=== PATIENT | male | born 1970 | race Caucasian/White ===

== ENCOUNTER 2016-09-04 20:02 | Emergency (ER) | payer OTHER ==
[~2016-09-04] VITALS: Ht 185.4 cm; Wt 97.8 kg
[2016-09-04 20:09] VITALS: TEMP 36.7; Ht 185.4 cm; Wt 97.8 kg
[2016-09-04 20:43] LABS: POINT OF CARE TROPONIN I < 0.030 ng/ml (0-0.045)
[2016-09-04 20:57] LABS: BASO % 0.2 %; BASO ABS # 0.02 K/uL (0-0.2); COMPLETE YES; EOS % 0.7 %; HEMATOCRIT 41.4 % (42-52); IG% 0.3 %; LYMPH ABS # 3.09 K/uL (1.2-3.4); MEAN CELL VOLUME 86.6 fL (80-100); MEAN CORPUSCULAR HEMOGLOBIN 30.8 pg (25-34); MEAN CORPUSCULAR HGB CONC 35.5 g/dl (32-36); MEAN PLATELET VOLUME 8.8 fL (7.4-10.4); MONO % 10.1 %; NEUT % 55.7 %; PLATELET COUNT 217 K/uL (130-400); RED BLOOD COUNT 4.78 M/uL (4.7-6.1); WHITE BLOOD COUNT 9.36 K/uL (4.8-10.8)
[2016-09-04 21:09] LABS: BUN/CREATININE RATIO 25.4 (10-20); CALCIUM 8.8 mg/dl (8.5-10.1); CREATININE 1.1 mg/dl (0.60-1.40)
--- NOTE | 2016-09-04 21:13 | DIAGNOSTIC IMAGING REPORT ---
CHEST ONE VIEW PORTABLE CLINICAL HISTORY: Chest pain. COMPARISON STUDY: Chest radiograph April 05, 2009. FINDINGS: The lung volumes are normal. No pneumothorax or pleural effusion is present. There is no consolidation. Pulmonary vascularity is normal. Cardiomediastinal silhouette is normal. IMPRESSION: No acute cardiopulmonary findings. Electronically signed by: Kenny Wheeler M.D. 09/04/2016 9:11 PM Dictated Date/Time: 09/04/2016 9:11 PM
[2016-09-04 21:14] LABS: CKMB/CK RATIO 0.4 (0-3.0)
--- NOTE | 2016-09-04 23:00 | EMERGENCY ROOM VISIT NOTE ---
History First contact with patient: 20:12 Chief Complaint: CHEST PAIN Stated Complaint: CHEST PAIN Nursing Triage Summary: pt reports while "doing cardio got approx 10 min into 25 min course and had a very sharp stabbing pain in mid chest" denies sob , N V, or diaphoresis History of Present Illness The patient is a 46 year old male who presents to the Emergency Room with complaints of intermittent chest pain. The patient states that he developed a sharp central chest pain while working out earlier today. The pain was intermittent and lasted for about 20 minutes. The patient went home and took a nap. He states that when he woke up, the pain started again and was again intermittent. He denies any radiation of the pain. Patient rates the discomfort a 4/10. He did take aspirin for his discomfort. The patient denies any personal history of cardiac disease. He does state he was previously on cholesterol medication, but was taken off of it a few years ago because his cholesterol had improved. He has had chest pain intermittently for the past few years and had a stress test done 3-4 years ago which was negative. He has a family history of cardiac disease in his brother, who had an OK in his 40s and his father, who had quadruple bypass surgery in his 60s. The patient denies any history of hypertension or diabetes. He does not smoke. He denies shortness of breath, fevers/chills, nausea/vomiting or diaphoresis. Review of Systems A complete 10 point review of systems was reviewed with the patient with pertinent positives and negatives as per history of present illness. All else were negative. Social History Smoking Status: Light Tobacco Smoker Current/Historical Medications No Active Prescriptions or Reported Meds Allergies Coded Allergies: No Known Allergies (Unverified , 09/04/16) Physical Exam Vital Signs Date Time Temp Pulse Resp B/P (MAP) Pulse Ox O2 Delivery O2 Flow Rate FiO2 09/04/16 23:21 76 18 135/87 99 09/04/16 22:11 66 18 134/88 96 Room Air 09/04/16 21:27 67 18 136/87 98 Room Air 09/04/16 20:24 77 09/04/16 20:09 36.7 85 18 149/95 96 Room Air Physical Exam VITALS: Vitals are noted on the nurse's note and reviewed by myself. Vital signs stable. GENERAL: This is a 46-year-old male, in no acute distress, nondiaphoretic, well- developed well-nourished. SKIN: Capillary reflex less than 2 seconds. HEENT: Normocephalic. PERRLA. EOMI. Mucous membranes moist. Neck is supple without nuchal rigidity. HEART: Regular rate and rhythm without murmurs gallops or rubs. LUNGS: Clear to auscultation bilaterally without wheezes, rales or rhonchi. ABDOMEN: Positive bowel sounds x 4. Soft, nontender to palpation. MUSCULOSKELETAL: No gross musculoskeletal defects. No pedal edema. No calf tenderness. NEURO: Patient was alert and oriented to person place and time. Medical Decision & Procedures ER Provider Diagnostic Interpretation: CHEST ONE VIEW PORTABLE CLINICAL HISTORY: Chest pain. COMPARISON STUDY: Chest radiograph April 05, 2009. FINDINGS: The lung volumes are normal. No pneumothorax or pleural effusion is present. There is no consolidation. Pulmonary vascularity is normal. Cardiomediastinal silhouette is normal. IMPRESSION: No acute cardiopulmonary findings. Laboratory Results 09/04/16 20:20 Red Blood Count 4.78, Mean Corpuscular Volume 86.6, Mean Corpuscular Hemoglobin 30.8, Mean Corpuscular Hemoglobin Concent 35.5, Mean Platelet Volume 8.8, Neutrophils (%) (Auto) 55.7, Lymphocytes (%) (Auto) 33.0, Monocytes (%) (Auto) 10.1, Eosinophils (%) (Auto) 0.7, Basophils (%) (Auto) 0.2, Neutrophils # (Auto ) 5.20, Lymphocytes # (Auto) 3.09, Monocytes # (Auto) 0.95, Eosinophils # (Auto ) 0.07, Basophils # (Auto) 0.02 09/04/16 20:20 Test 09/04/16 20:20 09/04/16 20:25 09/04/16 22:05 White Blood Count 9.36 K/uL (4.8-10.8) Red Blood Count 4.78 M/uL (4.7-6.1) Hemoglobin 14.7 g/dL (14.0-18.0) Hematocrit 41.4 % (42-52) Mean Corpuscular Volume 86.6 fL (80-100) Mean Corpuscular Hemoglobin 30.8 pg (25-34) Mean Corpuscular Hemoglobin Concent 35.5 g/dl (32-36) Platelet Count 217 K/uL (130-400) Mean Platelet Volume 8.8 fL (7.4-10.4) Neutrophils (%) (Auto) 55.7 % Lymphocytes (%) (Auto) 33.0 % Monocytes (%) (Auto) 10.1 % Eosinophils (%) (Auto) 0.7 % Basophils (%) (Auto) 0.2 % Neutrophils # (Auto) 5.20 K/uL (1.4-6.5) Lymphocytes # (Auto) 3.09 K/uL (1.2-3.4) Monocytes # (Auto) 0.95 K/uL (0.11-0.59) Eosinophils # (Auto) 0.07 K/uL (0-0.5) Basophils # (Auto) 0.02 K/uL (0-0.2) RDW Standard Deviation 37.6 fL (36.4-46.3) RDW Coefficient of Variation 11.9 % (11.5-14.5) Immature Granulocyte % (Auto) 0.3 % Immature Granulocyte # (Auto) 0.03 K/uL (0.00-0.02) Anion Gap 6.0 mmol/L (3-11) Est Creatinine Clear Calc Drug Dose 103.3 ml/min Estimated GFR () 92.8 Estimated GFR (Non- 80.1 BUN/Creatinine Ratio 25.4 (10-20) Calcium Level 8.8 mg/dl (8.5-10.1) Total Bilirubin 0.4 mg/dl (0.2-1) Aspartate Amino Transf (AST/SGOT) 21 U/L (15-37) Alanine Aminotransferase (ALT/SGPT) 42 U/L (12-78) Alkaline Phosphatase 76 U/L (45-117) Total Creatine Kinase 113 U/L (39-308) Creatine Kinase MB 0.5 ng/ml (0.5-3.6) Creatine Kinase MB Ratio 0.4 (0-3.0) Total Protein 7.4 gm/dl (6.4-8.2) Albumin 3.7 gm/dl (3.4-5.0) Globulin 3.7 gm/dl (2.5-4.0) Albumin/Globulin Ratio 1.0 (0.9-2) Bedside D-Dimer 170 ng/mlFEU (0-450) Bedside Troponin I < 0.030 ng/ml (0-0.045) ECG Rate (beats per minute): 75 Rhythm: normal sinus (with sinus arrhythmia) Findings: no acute ischemic change, no ectopy Change: no significant change (from March 2009) ED Course The patient was evaluated as above. Labs were drawn and IV access was obtained. 90 minute troponin and EKG were obtained. Patient was reevaluated and findings were discussed. Options of care were discussed with the patient and he prefers to be treated as an outpatient. Discharge instructions were reviewed with the patient. The patient verbalized understanding of my assessment and treatment plan and was discharged home in good condition. Medical Decision Differential diagnosis includes acute coronary syndrome, pulmonary embolism, pneumothorax, pericarditis, myocarditis, endocarditis, anxiety, musculoskeletal pain, GERD, costochondritis, pneumonia, among others. The patient is a 46-year-old male who presents today complaining of chest pain which has been intermittent for the past several hours. Labs revealed no leukocytosis, anemia or concerning electrolyte abnormalities. Troponin was not elevated. D-dimer was not elevated. EKG showed a normal sinus rhythm and was unchanged from a previous EKG performed in 2009. 90 minute troponin and EKG were performed and were unchanged. While the patient's history was certainly somewhat concerning, he does not have any significant cardiac risk factors. His HEART score was calculated and he was found to be at low risk for any major adverse cardiac event. I had a lengthy discussion with the patient's and offered him admission for further testing, but he prefers discharged home and I do feel this is reasonable given 2 negative troponins and relatively low risk. The patient was instructed to follow-up with his primary care provider/ cardiology this week, as he will likely need further testing as an outpatient. He was instructed to return here immediately if he does have persistent or worsening symptoms. The patient's case was reviewed with Dr. Napoles, ED attending physician, who agreed with my assessment and treatment plan. Based on the patient's presentation and work up, I feel the patient is stable for outpatient treatment. The patient was educated to return to the emergency department for any worsening of their current condition or new/concerning symptoms. He will follow up with his PCP or cardiology. Medication reconciliation: I attest that I have personally reviewed the patient 's current medication list. Blood Pressure Screening: Patient was found to have a slightly elevated blood pressure due to circumstances. I do not believe that the patient requires hypertension monitoring. Impression Primary Impression: Left sided chest pain Departure Information Dispostion Home / Self-Care Condition GOOD Prescriptions No Active Prescriptions or Reported Meds Referrals Rayray Rodriguez III, CRNP (PCP) Liam Ro MD Patient Instructions My [facility] Additional Instructions You have been treated in the Emergency Department for your Chest Pain. Laboratory results and Imaging Studies have ruled out any Acute cardiac or pulmonary cause of your chest pain. This does not fully rule out any cardiac abnormalities. You do need further workup, probably including a stress test as an outpatient. You may follow up with your primary care provider or with cardiology for this. Make sure to call your primary care provider or cardiology tomorrow to arrange this. You should schedule a follow-up appointment with your Primary Care Provider in 2 -3 days for further evaluation from today's Emergency Department visit. Return to the Emergency Department if your current symptoms worsen despite treatment course outlined above, or if you develop any of the following symptoms : worsening chest pain, associated jaw/arm pain, nausea, dizziness, shortness of breath, bloody cough, or fainting.
[2016-09-04 23:21] VITALS: BP 135/87; PULSE 76; O2SAT 99
== END 2016-09-04 23:22 | disposition home or self-care (01) ==
LOC: C.EDB 20:03
DX: R07.9 Chest pain, unspecified (principal); Z72.0 Tobacco use; Z82.49 Family history of ischemic heart disease and other diseases of the circulatory system

== ENCOUNTER → 2016-09-04 | Outpatient (CLI) | payer OTHER ==
[2016-09-04 17:05] LABS: BASO % 0.3 %; BASO ABS # 0.02 K/uL (0-0.2); COMPLETE YES; EOS % 1.2 %; HEMATOCRIT 42.7 % (42-52); IG% 0.4 %; LYMPH % 37.1 %; LYMPH ABS # 2.55 K/uL (1.2-3.4); MEAN CORPUSCULAR HEMOGLOBIN 31.8 pg (25-34); MEAN CORPUSCULAR HGB CONC 36.1 g/dl (32-36); MEAN PLATELET VOLUME 9.4 fL (7.4-10.4); MONO % 13.7 %; NEUT % 47.3 %; PLATELET COUNT 206 K/uL (130-400); RED BLOOD COUNT 4.85 M/uL (4.7-6.1); WHITE BLOOD COUNT 6.87 K/uL (4.8-10.8)
[2016-09-04 17:16] LABS: ALT/SGPT 41 U/L (12-78); AST/SGOT 18 U/L (15-37); BLOOD UREA NITROGEN 23 mg/dl (7-18); BUN/CREATININE RATIO 20.9 (10-20); C-REACTIVE PROTEIN < 0.29 mg/dl (0-0.29); CARBON DIOXIDE 27 mmol/L (21-32); CHLORIDE 106 mmol/L (98-107); GLUCOSE 95 mg/dl (70-99); SODIUM 139 mmol/L (136-145); URIC ACID 5.3 mg/dl (2.6-7.2)
[2016-09-04 17:27] LABS: ALB/GLOB RATIO 1.1 (0.9-2); ALKALINE PHOSPHATASE 76 U/L (45-117); RHEUMATOID FACTOR < 10.0 U/mL (0-15)
[2016-09-04 18:23] LABS: LYME DISEASE AB IGM NEG (NEG)
[2016-09-04 18:26] LABS: LYME DISEASE AB IGG NEG (NEG)
== END | disposition home or self-care (01) ==
LOC: C.LABBC 15:23
PROVIDERS: ATTEND Nurse Practitioner Family
DX: M25.50 Pain in unspecified joint (principal)

== ENCOUNTER → 2016-12-01 | Outpatient (CLI) | payer BC ==
[2016-12-01 10:45] LABS: BASO % 0.3 %; BASO ABS # 0.02 K/uL (0-0.2); COMPLETE YES; EOS % 1.7 %; HEMATOCRIT 43.7 % (42-52); IG% 0.5 %; LYMPH % 42.9 %; LYMPH ABS # 2.82 K/uL (1.2-3.4); MEAN CELL VOLUME 88.1 fL (80-100); MEAN CORPUSCULAR HEMOGLOBIN 30.8 pg (25-34); MEAN PLATELET VOLUME 9.3 fL (7.4-10.4); MONO % 10.4 %; NEUT % 44.2 %; PLATELET COUNT 211 K/uL (130-400); RED BLOOD COUNT 4.96 M/uL (4.7-6.1); WHITE BLOOD COUNT 6.57 K/uL (4.8-10.8)
[2016-12-01 11:47] LABS: ESTIMATED AVERAGE GLUCOSE 103 mg/dl; HA1C FLAG Normal (Normal)
[2016-12-01 12:31] LABS: ALT/SGPT 40 U/L (12-78); AST/SGOT 18 U/L (15-37); BLOOD UREA NITROGEN 16 mg/dl (7-18); BUN/CREATININE RATIO 14.5 (10-20); CALCIUM 8.7 mg/dl (8.5-10.1); CARBON DIOXIDE 27 mmol/L (21-32); CHLORIDE 106 mmol/L (98-107); GLUCOSE 94 mg/dl (70-99); POTASSIUM 4.3 mmol/L (3.5-5.1); SODIUM 139 mmol/L (136-145)
[2016-12-01 12:42] LABS: ALKALINE PHOSPHATASE 86 U/L (45-117); CHOLESTEROL 211 mg/dl (0-200); CHOLESTEROL/HDL RATIO 5.6; HDL CHOLESTEROL 38 mg/dl; LDL CHOLESTEROL CALCULATED 138 mg/dl; TRIGLYCERIDES 176 mg/dl (0-150); VERY LOW DENSITY LIPOPROT CALC 35 mg/dl
== END | disposition home or self-care (01) ==
LOC: C.LABBC 08:29
PROVIDERS: ATTEND Nurse Practitioner Family
DX: R07.9 Chest pain, unspecified (principal); Z13.1 Encounter for screening for diabetes mellitus; Z13.220 Encounter for screening for lipoid disorders

== ENCOUNTER 2017-04-28 13:45 | Emergency (ER) | payer BC ==
[~2017-04-28] VITALS: Ht 185.4 cm; Wt 97.0 kg
[2017-04-28 13:48] VITALS: TEMP 37; Ht 185.4 cm; Wt 97.0 kg
[2017-04-28] MEDS ORDERED: OXYCODONE HCL IR 5 MG TAB (IMMEDIATE RELEASE) PO STA (14:05)
[2017-04-28] MEDS ORDERED: MULT-662 (14:27)
[2017-04-28] MEDS ORDERED: MELO7.5T5 PO (14:27)
--- NOTE | 2017-04-28 14:39 | DIAGNOSTIC IMAGING REPORT ---
HEAD WITHOUT CONTRAST (CT) CLINICAL HISTORY: 46 years-old Male with fall, head injury. Acute head injury status post fall TECHNIQUE: Multiple axial CT images of the head were obtained without contrast. A dose lowering technique was utilized adhering to the principles of ALARA. CT DOSE: 614.27 mGy.cm COMPARISON: None. FINDINGS: No acute intracranial hemorrhage, midline shift, intracranial mass, hydrocephalus, territorial ischemia or abnormal extra-axial collection. The calvarium is intact. The paranasal sinuses, mastoid air cells, and middle ear cavities are clear. IMPRESSION: No acute intracranial abnormality or calvarial fracture. The above report was generated using voice recognition software. It may contain grammatical, syntax or spelling errors. Electronically signed by: Kameron Raman M.D. 04/28/2017 2:38 PM Dictated Date/Time: 04/28/2017 2:35 PM
--- NOTE | 2017-04-28 14:41 | DIAGNOSTIC IMAGING REPORT ---
R CLAVICLE HISTORY: 46 years-old Male right clavicle pain s/p fall while skiing acute right clavicle pain status post skiing injury COMPARISON: Chest radiograph 09/04/2016 TECHNIQUE: 2 views of the right clavicle FINDINGS: There is an acute complete fracture of the mid right clavicle with proximal clavicle displaced superiorly approximately 9 mm. There is approximately 9 mm apposition of the fracture fragments. Mild associated soft tissue swelling. Mild degenerative changes of the right glenohumeral and AC joints. Imaged lung nair appear hypoinflated. IMPRESSION: Acute fracture of the mid right clavicle with displacement and apposition as above. The above report was generated using voice recognition software. It may contain grammatical, syntax or spelling errors. Electronically signed by: Kameron Raman M.D. 04/28/2017 2:40 PM Dictated Date/Time: 04/28/2017 2:38 PM
[2017-04-28] MEDS ORDERED: OXYC1TAB3 PO (14:55)
--- NOTE | 2017-04-28 15:01 | EMERGENCY ROOM VISIT NOTE ---
ED Visit Note First contact with patient: 13:51 CHIEF COMPLAINT: Collar bone injury HISTORY OF PRESENT ILLNESS: This 46-year-old male patient presents to the emergency department, ambulatory, approximately 1 hour after they fell onto the right shoulder with sudden onset of pain in the collar bone while skiing. The patient states he hit an edge of his ski, then flew into the air, landing on the right shoulder. He was not wearing a helmet, and does state he hit his head. He does not recall the fall, but states there was no loss of consciousness. He denies any visual disturbances, headache, dizziness, nausea, vomiting, neck pain, confusion, or other concerning symptoms. There has not been any shortness of breath, inability to move the arm, or head injury. The pain is severe in intensity and steady. It hurts much worse with any movement of the right upper extremity. The patient rates their pain as sharp and 10/10. The patient has taken nothing for the pain. The patient has not had a previous injury to this clavicle. REVIEW OF SYSTEMS: A 6 system review of systems was completed with positives and pertinent negatives listed in the HPI. ALLERGIES: None MEDICATIONS: Meloxicam PMH: Chronic back, knee pain SOCIAL HISTORY: The patient lives locally with family. He denies drug, alcohol , tobacco use. PHYSICAL EXAM: Vital Signs: Reviewed Nurse's notes, vital signs stable. GENERAL : This is a 46-year-old white male, in no acute distress, but appears in pain. HEART: Regular rate and rhythm without murmurs, ectopy, gallops, or rubs. LUNGS : Clear to auscultation and breath sounds equal, no wheezes, rales, or rhonchi. SKIN: Normal. MUSCULOSKELETAL: The right clavicle is not obviously deformed. It is markedly tender over the lateral aspect. There is no tenting of the skin or break in the skin. Decreased range of motion of the right arm. No sulcus sign. The patient has no tenderness over the cervical spine. There is no tenderness over the right shoulder. HEENT: Normocephalic, atraumatic. No tenderness on palpation. PERRLA. No hemotympanum. No cox sign or raccoon eyes. No nasal septum deviation. Turbinates without inflammation, erythema, or bleeding. NEURO: Patient was alert and oriented to person place and time. Normal sensation to light and sharp touch. No focal neurologic deficits. RADIOLOGY: R CLAVICLE HISTORY: 46 years-old Male right clavicle pain s/p fall while skiing acute right clavicle pain status post skiing injury COMPARISON: Chest radiograph 09/04/2016 TECHNIQUE: 2 views of the right clavicle FINDINGS: There is an acute complete fracture of the mid right clavicle with proximal clavicle displaced superiorly approximately 9 mm. There is approximately 9 mm apposition of the fracture fragments. Mild associated soft tissue swelling. Mild degenerative changes of the right glenohumeral and AC joints. Imaged lung nair appear hypoinflated. IMPRESSION: Acute fracture of the mid right clavicle with displacement and apposition as above. The above report was generated using voice recognition software. It may contain grammatical, syntax or spelling errors. Electronically signed by: Kameron Raman M.D. 04/28/2017 2:40 PM Dictated Date/Time: 04/28/2017 2:38 PM HEAD WITHOUT CONTRAST (CT) CLINICAL HISTORY: 46 years-old Male with fall, head injury. Acute head injury status post fall TECHNIQUE: Multiple axial CT images of the head were obtained without contrast. A dose lowering technique was utilized adhering to the principles of ALARA. CT DOSE: 614.27 mGy.cm COMPARISON: None. FINDINGS: No acute intracranial hemorrhage, midline shift, intracranial mass, hydrocephalus, territorial ischemia or abnormal extra-axial collection. The calvarium is intact. The paranasal sinuses, mastoid air cells, and middle ear cavities are clear. IMPRESSION: No acute intracranial abnormality or calvarial fracture. The above report was generated using voice recognition software. It may contain grammatical, syntax or spelling errors. Electronically signed by: Kameron Raman M.D. 04/28/2017 2:38 PM Dictated Date/Time: 04/28/2017 2:35 PM EMERGENCY DEPARTMENT COURSE: I examined the patient. I offered pain medication , but the patient declined medication from the nurse. An x-ray of the right clavicle was reviewed by myself and radiologist and showed fracture. CT scan performed due to mechanism of injury and head injury with amnesia to the fall. This was reviewed by radiologist and myself as above. The patient was placed in a sling under my direction and the position was satisfactory. Neurovascular status was rechecked and intact. The patient was encouraged to contact orthopedics on Sunday to establish follow-up. The patient was discharged home in stable condition. I attest that I have personally reviewed the patient's current medication list. Blood Pressure Screening: Patient was found to have a slightly elevated blood pressure due to circumstances. I do not believe that the patient requires hypertension monitoring. Differential diagnosis includes fracture, sprain, strain, dislocation, contusion , closed head injury, ICH, concussion, skull fracture, malignancy, and others DIAGNOSIS: Fractured clavicle, closed head injury, fall Current/Historical Medications Scheduled Meloxicam (Mobic), 7.5 MG PO DAILY Scheduled PRN Oxycodone Ir (Roxicodone Ir), 1-2 TAB PO Q4H PRN for Pain Miscellaneous Medications Multiple Vitamins W/ Minerals (Mens 50+ Advanced) Allergies Coded Allergies: No Known Allergies (Unverified , 09/04/16) Vital Signs Date Time Temp Pulse Resp B/P (MAP) Pulse Ox O2 Delivery O2 Flow Rate FiO2 04/28/17 15:21 82 16 135/76 96 04/28/17 13:48 37.0 73 16 143/87 96 Medications Administered Medications (Trade) Dose Ordered Sig/Naomi Route Start Time Stop Time Status Last Admin Dose Admin Oxycodone HCl (Roxicodone Immediate Rel Tab) 5 mg NOW STAT PO 04/28/17 14:05 04/28/17 14:07 DC 04/28/17 14:39 5 MG Departure Information Impression Primary Impression: Right clavicle fracture Additional Impressions: Closed head injury without loss of consciousness Skiing accident Dispostion Home / Self-Care Condition GOOD Prescriptions Oxycodone Ir (Roxicodone Ir) 5 Mg Tab 1-2 TAB PO Q4H Y for Pain, #15 TAB For Initial Treatment Prov: Roxana Anguiano PA-C 04/28/17 Referrals Rayray Rodriguez III, CRNP (PCP) [facility] Patient Instructions ED Fx Clavicle, My [facility] [address] Additional Instructions You were seen in the ED today for clavicle fracture and head injury. CT of your head did not reveal any acute intracranial abnormalities. Oxycodone (OxyIR) 5mg: Take 1-2 pills every four hours as needed for breakthrough pain. Avoid alcohol, operating machinery or dangerous equipment, working on ladders or roofs, DRIVING, or situations where being under the influence may be dangerous. It is recommended to use an crot-koy-vsfcigm stool softener such as Colace, 100mg twice daily while taking this medication to avoid constipation. Ibuprofen(Motrin, Advil) may be used for fever or pain. Use 600mg every six hours as needed. Take with food. Avoid using more than 2400mg in a 24 hour period. Do not use 2400mg per day for more than three consecutive days without physician direction. Prolonged inappropriate use can lead to stomach upset or ulcers. (AND/OR) Acetaminophen(Tylenol) may be used for fever or pain. Use 1000mg every six hours as needed. Avoid using more than 3000mg in a 24 hour period. Ice compresses for 20 minutes at a time four times daily for 2-3 days. Use the sling as instructed. Remove your arm from the sling 4-6 times a day and move all the joints around to keep them loose. Rest your injury. You should relax in a quiet, dark place for the rest of the day. Avoid any possible triggers including: cigarette smoke, caffeine, nicotine, chocolate, wine, beer, loud noises or music, or bright lights. Call [facility], [phone], on Sunday to arrange follow up for your injury. Follow-up with your primary care physician in 2 to 3 days for a recheck of your current condition. Return to the ER immediately for any numbness, tingling, severe pain, extreme swelling in the extremity or as needed. Return to the Emergency Department if your current symptoms worsen despite treatment course outlined above, or if you develop any of the following symptoms : intractable pain despite aforementioned treatment course, visual disturbances , loss of vision, unilateral weakness or facial drooping, slurring of speech, loss of coordination, or loss of consciousness. Problem Qualifiers Primary Impression: Right clavicle fracture Encounter type: initial encounter Clavicle location: lateral end Fracture type: closed Fracture alignment: displaced Qualified Codes: S42.031A - Displaced fracture of lateral end of right clavicle, initial encounter for closed fracture Additional Impressions: Closed head injury without loss of consciousness Encounter type: initial encounter Qualified Codes: S09.90XA - Unspecified injury of head, initial encounter Skiing accident Encounter type: initial encounter Qualified Codes: V00.328A - Other snow- ski accident, initial encounter
[2017-04-28 15:21] VITALS: BP 135/76; PULSE 82; O2SAT 96
== END 2017-04-28 15:21 | disposition home or self-care (01) ==
LOC: C.EDB 13:46 → C.EDD 15:21
DX: S42.031A Displaced fracture of lateral end of right clavicle, initial encounter for closed fracture (principal); S09.90XA Unspecified injury of head, initial encounter; V00.328A Other snow-ski accident, initial encounter; Y93.23 Activity, snow (alpine) (downhill) skiing, snowboarding, sledding, tobogganing and snow tubing

== ENCOUNTER → 2017-09-06 | Outpatient (CLI) | payer BC ==
[~2017-09-06] MED LIST: MELO7.5T5 PO; MULT-662; OXYC-90 PO
--- NOTE | 2017-09-06 15:59 | DIAGNOSTIC IMAGING REPORT ---
KUB HISTORY: Acute bilateral flank pain with history of kidney stones M54.9 COMPARISON: Pelvis and hip radiographs 12/09/2015. FINDINGS: The bowel gas pattern is non-obstructive. There is no organomegaly. Right renal shadow is partially obscured by bowel gas. Punctate radiodensity projects over the expected region of the left renal pelvis. No definite ureteral calculi identified. There are probable phleboliths about the left hemipelvis. No pneumoperitoneum or pneumatosis. No fracture. Mild convex right curvature of the mid lumbar spine. IMPRESSION: 1. Punctate radiodensity projecting over the left renal pelvis suggests renal calculus. No ureteral calculi identified. 2. Nonobstructive bowel gas pattern. Electronically signed by: Kameron Raman M.D. 09/06/2017 3:58 PM Dictated Date/Time: 09/06/2017 3:56 PM
== END | disposition home or self-care (01) ==
LOC: C.RAD1850 15:48
PROVIDERS: ATTEND Nurse Practitioner Family
DX: M54.9 Dorsalgia, unspecified (principal)

== ENCOUNTER → 2017-09-06 | Outpatient (CLI) | payer BC | END | disposition home or self-care (01) | LOC: C.LABSPEC 17:24 | PROVIDERS: ATTEND Nurse Practitioner Family | DX: M54.9 Dorsalgia, unspecified (principal) ==

== ENCOUNTER → 2017-10-05 | Outpatient (CLI) | payer BC ==
[2017-10-05 13:34] LABS: ALBUMIN 3.9 gm/dl (3.4-5.0); ALKALINE PHOSPHATASE 92 U/L (45-117); ALT/SGPT 41 U/L (12-78); AST/SGOT 20 U/L (15-37); BLOOD UREA NITROGEN 15 mg/dl (7-18); CALCIUM 8.8 mg/dl (8.5-10.1); CARBON DIOXIDE 27 mmol/L (21-32); CHOLESTEROL 204 mg/dl (0-200); CREATININE 1.08 mg/dl (0.60-1.40); GLUCOSE 95 mg/dl (70-99); LDL CHOLESTEROL CALCULATED 109 mg/dl; SODIUM 137 mmol/L (136-145); TOTAL PROTEIN 7.8 gm/dl (6.4-8.2)
== END | disposition home or self-care (01) ==
LOC: C.LABBC 10:05
PROVIDERS: ATTEND Nurse Practitioner Family
DX: Z13.1 Encounter for screening for diabetes mellitus (principal); E78.5 Hyperlipidemia, unspecified; Z12.5 Encounter for screening for malignant neoplasm of prostate